=== PATIENT | female | born 1970 | race Hispanic/Latino ===

== ENCOUNTER 2024-10-15 20:26 | Emergency (ER) | payer BC ==
[~2024-10-15] VITALS: Ht 165.1 cm; Wt 99.8 kg
--- NOTE | 2024-10-15 20:49 | ERN ---
ED Note History of Present Illness Stated Complaint: FEVER, LUNGS HURT Chief Complaint: Sepsis Time Seen by MD: 20:29 Dictation: Patient is a 54-year-old diabetic female coming in today with fever chills persistent dry cough and states my lungs hurt onset yesterday. She denies any production with her cough states she does have malaise with sore throat. No change in urination. States her blood sugar was on checked today because she was feeling too bad. Allergies: Coded Allergies: No Known Allergies (Unverified Allergy, Unknown, 10/15/24) Past Medical History Past Medical History: Diabetes-Type II Surgical History: Cholecystectomy, Other Surgical History Other: RT ARM History: Not Applicable RN Note Reviewed/Agreed w/PFSH: Yes Review of System Dictation CONSTITUTIONAL: Negative except for HPI fever chills HEAD/FACE: Negative except for HPI EENT: Negative except for HPI sore throat RESPIRATORY: Negative except for HPI persistent dry cough GASTROINTESTINAL/ABDOMINAL: Negative except for HPI GENITOURINARY: Negative except for HPI MUSCULOSKELETAL: Negative except for HPI malaise INTEGUMENTARY: Negative except for HPI NEUROLOGICAL/PSYCH: Negative except for HPI HEMATOLOGIC/LYMPHATIC: Negative except for HPI All Systems Negative, Except as noted above. 13 point review of systems assessed and all negative except for above. Initial Vital Sign VS Vital Signs Date Time Temp Pulse Resp B/P (MAP) Pulse Ox O2 Delivery O2 Flow Rate FiO2 10/15/24 20:27 102.7 88 19 124/73 97 Room Air 10/15/24 21:24 0 21 Physical Exam Dictation Vital Signs reviewed General Appearance: Alert, oriented x 3, moderate acute distress, well developed, nourished. Head and Face: non-traumatic. Eyes: PERRL, pink conjunctivas, eyelid no trauma, anterior chamber with arcus senilis. Ears: Pinnas intact and no signs of trauma or erythema ear canals clear and no discharge TM no erythema Nose: Clear discharge, no bleeding. Oropharynx: Mouth normal, tongue pink, pharynx clear, moderate pharyngeal erythema, tonsils no exudates, no abscesses noted, mucous membrane moist Neck: Supple, non-tender, no thyromegaly, no masses, no JVD, no bruits Breast:Deferred Chest:No tenderness, no crepitus, no paradoxical movement, no retractions Lungs:Clear, well-ventilated, symmetric, no rales, no wheezing, no rhonchi, no stridor, good breath sounds bilaterally Heart: Regular rate, regular rhythm, no murmur, no gallops Vascular: no peripheral edema, Abdomen: Soft, positive bowel sounds, nondistended, no guarding, nontender, no rebound, no masses no hepatomegaly, no splenomegaly, no Madison's sign, no hernias. Rectal: Deferred Genital: Deferred Neurological: Normal speech, motor function intact, sensory function intact Musculoskeletal: Neck nontender, full range of motion, back nontender, full range of motion, Extremities: nontender, full range of motion Skin: Color pink, dry, no turgor, no rash, no lacerations, no abrasions, no contusions. Lymphatic: Deferred Results (Laboratory/Radiology) Laboratory/Radiology Laboratory Tests Test 10/15/24 21:04 10/15/24 21:05 White Blood Count 11.7 K/uL (4.8-10.8) H Red Blood Count 4.24 MIL/uL (4.00-5.50) Hemoglobin 12.8 g/dL (12.0-16.0) Hematocrit 37.7 % (36-48) Mean Corpuscular Volume 88.9 fL (79-99) Mean Corpuscular Hemoglobin 30.2 pg (27.0-33.0) Mean Corpuscular Hemoglobin Concent 34.0 g/dL (32.0-36.0) Red Cell Distribution Width 14.0 % (11.0-15.5) Platelet Count 398 K/uL (130-400) Mean Platelet Volume 10.9 fL (7.5-10.5) H Immature Granulocyte % (Auto) 0.3 % (0-1) Neutrophils (%) (Auto) 79.8 % (40.0-77.0) H Lymphocytes (%) (Auto) 9.8 % (21.0-51.0) L Monocytes (%) (Auto) 7.7 % (3.0-13.0) Eosinophils (%) (Auto) 2.1 % (0.0-8.0) Basophils (%) (Auto) 0.3 % (0.0-5.0) Neutrophils # (Auto) 9.3 K/uL (1.8-7.7) H Lymphocytes # (Auto) 1.1 K/uL (1.0-4.8) Monocytes # (Auto) 0.9 K/uL (0.1-1.0) Eosinophils # (Auto) 0.25 K/uL (0.00-0.70) Basophils # (Auto) 0.03 K/uL (0.00-0.20) Absolute Immature Granulocyte (auto 0.04 K/uL (0-1) Nucleated Red Blood Cells 0.0 % (0.0-0.19) White Cell Morphology Comment See comments Sodium Level 141 mmol/L (136-145) Potassium Level 3.5 mmol/L (3.5-5.1) Chloride Level 105 mmol/L (101-111) Carbon Dioxide Level 29 mmol/L (21-32) Blood Urea Nitrogen 15 mg/dL (7-18) Creatinine 0.9 mg/dL (0.5-1.0) Glomerular Filtration Rate Calc 75 mL/min (>90) Random Glucose 135 mg/dL (70-105) H Lactic Acid Level 2.6 mmol/L (0.8-2.5) H Total Calcium 9.5 mg/dL (8.5-10.1) Total Creatine Kinase 91 U/L (21-232) Troponin I High Sensitivity 7 ng/L (4-50) Influenza Type A Antigen Negative For Type A Influenza Type B Antigen Negative For Type B SARS-CoV-2 Antigen (Rapid) PRESUMPTIVE NEGATIVE Group A Streptococcus Rapid negative (NEGATIVE) Urine Color LIGHT-YELLOW (YELLOW) Urine Appearance CLEAR (CLEAR) Urine pH 5.5 (5.0-8.0) Urine Specific [place] 1.026 (1.001-1.031) Urine Protein NEGATIVE mg/dL (NEGATIVE) Urine Glucose (UA) NEGATIVE mg/dL (NEGATIVE) Urine Ketones NEGATIVE mg/dL (NEGATIVE) Urine Occult Blood NEGATIVE (NEGATIVE) Urine Nitrate NEGATIVE (NEGATIVE) Urine Bilirubin NEGATIVE mg/dL (NEGATIVE) Urine Urobilinogen 0.2 mg/dL (0.2-1.0) Urine Leukocyte Esterase 250 Jose/uL (NEGATIVE) H Urine RBC 2-5 /HPF (0-1) H Urine WBC 11-25 /HPF (0-1) H Urine Squamous Epithelial Cells FEW /HPF (0-2) Urine Bacteria RARE /HPF (None Seen) CHEST 1VW HISTORY: Shortness of breath, cough COMPARISON: None FINDINGS: A frontal projection of the chest was obtained. No acute pulmonary infiltrates is seen. The heart is normal in size. Prominent interstitial markings are seen. Degenerative changes are seen. No evidence of aortic calcification is seen. IMPRESSION: 1. No acute pulmonary infiltrate is seen. Labs Reviewed?: Yes EKG Comment: EKG SINUS RHYTHM/HEART RATE 84/AXIS NORMAL/NO ECTOPY ED Course ED Course Orders Procedure Category Date Status Time Iv Insertion CPOE 10/15/24 Transmitted 20:43 Pulse Ox(Continuous) RT 10/15/24 Transmitted 20:43 Vital Signs Per CPOE 10/15/24 Transmitted Routine 20:43 12 Lead Ekg Tracing- EKG 10/15/24 Logged Technical 20:43 Cbc With Differential LAB 10/15/24 Complete 20:43 Blood Cult HAL 10/15/24 In Process 20:43 Urinalysis Profile LAB 10/15/24 Logged 20:43 Culture Urine HAL 10/15/24 In Process 20:43 Creatine Kinase, Total LAB 10/15/24 Complete 20:43 Troponin I High LAB 10/15/24 Complete Sensitivity 20:43 Lactic Acid LAB 10/15/24 Complete 20:43 Basic Metabolic Panel LAB 10/15/24 Complete 20:43 Covid19 (Sars Antigen LAB 10/15/24 Complete Rapid) 20:42 Rapid (Group A Strep) LAB 10/15/24 Complete 20:42 Influenza Type A & B, LAB 10/15/24 Complete Rapid 20:42 Acetaminophen 500mg PHA 10/15/24 Complete Tab (Tylenol 500mg T 21:00 Urinalysis Profile LAB 10/15/24 Complete 20:42 Chest 1vw RAD 10/15/24 Resulted 20:42 Covid19 (Sars Antigen LAB 10/15/24 Logged Rapid) 20:45 Rapid (Group A Strep) LAB 10/15/24 Logged 20:45 0.9%Nacl 1000ml (Ns PHA 10/15/24 Complete 1000ml) 21:00 Ketorolac PHA 10/15/24 Complete Tromethamine 30mg/Ml 21:00 Budesonide 0.5 Mg/2 PHA 10/15/24 Complete Ml Inh (Pulmicort 0. 21:20 Ceftriaxone 1g Vial PHA 10/15/24 Complete (Rocephine 1g Inj) 21:30 Acetaminophen 325 Tab PHA 10/15/24 Complete (Tylenol 325mg Tab 21:30 Methylprednisolone PHA 10/15/24 Complete Succ 125mg (Solu-Medr 21:30 Current Medications Medications (Trade) Dose Ordered Sig/Rosemary Route PRN Reason Start Time Stop Time Status Last Admin Dose Admin Acetaminophen (TYLenol 325MG TAB) 650 mg ONCE ONCE PO 10/15/24 21:30 10/15/24 21:31 DC Acetaminophen (TYLenol 500MG TAB) 1,000 mg ONCE ONCE PO 10/15/24 21:00 10/15/24 21:01 DC 10/15/24 21:34 Budesonide (Pulmicort 0.5 Mg/2ml) 0.5 mg ONCE STAT IH 10/15/24 21:20 10/15/24 21:21 DC 10/15/24 22:17 Ceftriaxone Sodium (ROCEphine 1G INJ) 1 gm ONCE ONCE IVPB 10/15/24 21:30 10/15/24 21:31 DC 10/15/24 21:34 Ketorolac Tromethamine (toRADol) 30 mg ONCE ONCE IVP 10/15/24 21:00 10/15/24 21:01 DC 10/15/24 21:34 Methylprednisolone Sodium Succinate (Solu-medROL 125MG) 125 mg ONCE ONCE IVP 10/15/24 21:30 10/15/24 21:31 DC 10/15/24 21:35 Sodium Chloride 1,000 ml @ 0 mls/hr ONCE ONCE IV 10/15/24 21:00 10/15/24 21:01 DC 10/15/24 21:33 Vital Signs Date Time Temp Pulse Resp B/P (MAP) Pulse Ox O2 Delivery O2 Flow Rate FiO2 10/15/24 22:18 87 18 10/15/24 21:56 83 20 126/57 97 Room Air* 0 21 10/15/24 21:34 102.7 10/15/24 21:24 82 18 125/61 98 Room Air* 0 21 10/15/24 20:27 102.7 88 19 124/73 97 Room Air 2230, RESPIRATIONS ARE 16 A MINUTE SATURATIONS 97 98% ON ROOM AIR PATIENT STATES SHE FEELS MARKEDLY IMPROVED AFTER TREATMENT SHE IS AWARE SHE HAS A VIRAL URI WITH COUGH, UTI AND WE WILL BE DISCHARGED HOME WITH MEDICATIONS AND TO SEE HER DOCTOR. SHE SAYS SHE HAS A A NEBULIZER TREATMENT AT HOME. WE WILL NOT WAIT FOR 2ND LACTIC ACID READING BELIEVE THIS IS ALL VIRAL AND REACTIVE. HEART Score Response (Comments) Value History: Low suspicion (0) 0 Age: 45-65yrs (+1) 1 Risk Factors: 1-2 risk factors (+1) 1 Initial Troponin: Normal limit (0) 0 Total 2 Medical Decision Making MDM MDM: DIFFERENTIAL DIAGNOSIS: PNEUMONIA/BRONCHITIS/ACS/AMI/INFLUENZA, COVID, VIRAL URI RATIONALE: TESTS CONSIDERED AND ORDERED SECONDARY TO SHARED DECISION MAKING INCLUDE: EKG/LABS/RADIOLOGY PREVIOUS OUTSIDE RECORDS REVIEWED: OLD ER VISITS. RISK OF COMPLICATION AND/OR MORBIDITY OR MORTALITY OF PATIENT MANAGEMENT: NONE MEDICATIONS-PER MEDICATION RECONCILIATION NEED FOR HOSPITALIZATION: PATIENT DOES NOT MEET CRITERIA FOR HOSPITALIZATION. NO NEED FOR EMERGENCY MAJOR/MINOR SURGERY: NO THERE ARE NO SOCIAL CONCERNS WITH THIS PATIENT. PRESCRIPTION DRUG MANAGEMENT ALBUTEROL/TESSALON/AUGMENTIN PRESCRIPTIONS WILL INCLUDE SYMPTOMATIC CARE PATIENT'S PRIOR EXTERNAL MEDICAL RECORDS FROM OTHER ER VISITS WERE REVIEWED BY ME INDICATED. PRIOR TESTING AND RESULTS FROM PREVIOUS VISITS WERE REVIEWED. PRIOR TESTS WERE TAKEN INTO ACCOUNT WITH MEDICAL DECISION MAKING AND RESOURCE UTILIZATION, INDEPENDENT HISTORIAN/HISTORIANS WERE USED TO OBTAIN COMPLETE MEDICAL HISTORY. I INDEPENDENTLY INTERPRETED THE TEST THAT WERE PERFORMED, RESULTS WERE REVIEWED BY ME AND CONSIDERED FINDINGS ON RADIOLOGY IF ORDERED. MEDICAL MANAGEMENT AND EXAMINATION INTERPRETATION DISCUSSIONS WERE HAD BY ME WITH OTHER QUALIFIED HEALTHCARE PROFESSIONALS INDICATED FOR THE PATIENT'S CARE. DX & DISP Disposition: Discharge Departure Impression: Primary Impression: Viral URI with cough Additional Impressions: Acute cystitis with hematuria, Fever, Elevated lactic acid level Condition: Stable Scripts Benzonatate (Tessalon Perles) 100 Mg Cap 200 MG PO TID for cough, #60 CAP 0 Refills Prov: LAMONT JJ AFFIRMATIVE ACTION SPECIALIST 10/15/24 Amoxicillin/Potassium Clav (Amox Tr-K Clv 875-125 mg Tab) 875 Mg-125 Mg Tablet 1 EACH PO BID for 7 Days, #14 TAB 0 Refills Prov: LAMONT JJ AFFIRMATIVE ACTION SPECIALIST 10/15/24 Albuterol Sulfate (Albuterol Sulfate) 2.5 Mg/0.5 Ml Vial.neb 2.5 MG IH Q6H for wheezing/sob, #20 INH 0 Refills Prov: LAMONT JJ AFFIRMATIVE ACTION SPECIALIST 10/15/24 Additional Instructions: FOLLOW-UP WITH PRIMARY CARE PROVIDER IN 1 TO 2 DAYS. TAKE MEDICATIONS DIRECTED HERE IN THE EMERGENCY ROOM. OKAY TO CONTINUE HOME MEDICATIONS UNLESS OTHERWISE DISCUSSED DURING YOUR VISIT IN THE EMERGENCY ROOM TODAY. RETURN TO YOUR NEAREST EMERGENCY ROOM IF SYMPTOMS WORSEN OR IF THERE IS NO IMPROVEMENT. CALL 911 IF YOU NEED IMMEDIATE ASSISTANCE. TAKE TYLENOL OR MOTRIN OVER-THE-CO UNTER NEEDED AND IF NO CONTRAINDICATIONS ARE PRESENT. INCREASE ORAL HYDRATION. A WOUND CULTURE OR URINE CULTURE WAS ORDERED HERE IN THE EMERGENCY ROOM DEPARTMENT PLEASE FOLLOW-UP WITH PRIMARY CARE PROVIDER AND ADVISE THEM TO GET REPEAT PORTS FROM OUR FACILITY. IF YOU HAD ANY TODD WRAP/SPLINTS THAT WERE APPLIED HERE, PLEASE DO NOT REMOVE THEM UNTIL YOU SEE YOUR PRIMARY CARE OR SPECIALTY. TAKE ANTIBIOTIC DIRECTED UNTIL GONE. USE ALBUTEROL NEBULIZER EVERY 6 HOURS WHILE AWAKE FOR THE NEXT TWO DAYS. FOLLOW UP WITH YOUR PRIMARY CARE DOCTOR IN 1-2 DAYS Referrals: SELF,REFERRAL (PCP) Time of Disposition: 22:31 I have reviewed the case, and I agree with, Diagnosis and Plan LAMONT JJ NP Oct 15, 2024 20:49
[2024-10-15 21:17] LABS: BASOPHILS # (AUTO) 0.03 K/uL (0.00-0.20); BASOPHILS % (AUTO) 0.3 % (0.0-5.0); EOSINOPHILS # (AUTO) 0.25 K/uL (0.00-0.70); EOSINOPHILS % (AUTO) 2.1 % (0.0-8.0); HEMATOCRIT 37.7 % (36-48); IMMATURE GRANULOCYTE ABSOLUTE 0.04 K/uL (0-1); LYMPHOCYTES # (AUTO) 1.1 K/uL (1.0-4.8); LYMPHOCYTES % (AUTO) 9.8 % (21.0-51.0); MEAN CORPUSCULAR HEMOGLOBIN 30.2 pg (27.0-33.0); MEAN CORPUSCULAR VOLUME 88.9 fL (79-99); MONOCYTES # (AUTO) 0.9 K/uL (0.1-1.0); MONOCYTES % (AUTO) 7.7 % (3.0-13.0); NEUTROPHILS # (AUTO) 9.3 K/uL (1.8-7.7); NEUTROPHILS % (AUTO) 79.8 % (40.0-77.0); PLATELET COUNT (AUTO) 398 K/uL (130-400); RED BLOOD CELL COUNT(AUTO) 4.24 MIL/uL (4.00-5.50); WHITE BLOOD COUNT (AUTO) 11.7 K/uL (4.8-10.8)
[2024-10-15 21:18] LABS: APPEARANCE,URINE CLEAR (CLEAR); BILIRUBIN,URINE NEGATIVE (NEGATIVE); COLOR,URINE LIGHT-YELLOW (YELLOW); GLUCOSE, URINE (UA) NEGATIVE (NEGATIVE); KETONES,URINE NEGATIVE (NEGATIVE); LEUKOCYTE ESTERASE ,URINE 250 Leu/uL (NEGATIVE); NITRATE,URINE NEGATIVE (NEGATIVE); OCCULT BLOOD,URINE NEGATIVE (NEGATIVE); PH,URINE 5.5 (5.0-8.0); PROTEIN,URINE NEGATIVE (NEGATIVE); UROBILINOGEN,URINE 0.2 mg/dL (0.2-1.0)
[2024-10-15 21:23] LABS: ADD UA MICROSCOPIC YES
--- NOTE | 2024-10-15 21:23 | HMCIMG ---
CHEST 1VW HISTORY: Shortness of breath, cough COMPARISON: None FINDINGS: A frontal projection of the chest was obtained. No acute pulmonary infiltrates is seen. The heart is normal in size. Prominent interstitial markings are seen. Degenerative changes are seen. No evidence of aortic calcification is seen. IMPRESSION: 1. No acute pulmonary infiltrate is seen.
[2024-10-15 21:25] LABS: CREATININE 0.9 mg/dL (0.5-1.0); POTASSIUM 3.5 mmol/L (3.5-5.1)
[2024-10-15 21:27] LABS: BACTERIA,URINE RARE /HPF (None Seen); MUCUS,URINE RARE LPF (None Seen); SQUAMOUS EPITHELIAL CELL,UR FEW /HPF (0-2)
[2024-10-15 21:29] LABS: RAPID GROUP A STREP negative (NEGATIVE)
[2024-10-15] MEDS: 0.9%NACL 1000ML 1,000 ML IV ONE (21:33)
[2024-10-15 21:34] VITALS: TEMP 102.7
[2024-10-15] MEDS: ketOROlac 30MG VIAL (30MG/ML) IVP ONE (21:34)
[2024-10-15] MEDS: acetaMINOPHEN 325 MG TAB PO ONE (21:34)
[2024-10-15] MEDS: cefTRIAXone 1G VIAL IVPB ONE (21:34)
[2024-10-15] MEDS: acetaMINOPHEN 500 MG TABLET PO ONE (21:34)
[2024-10-15] MEDS: Solu-medROL 125MG VIAL IVP ONE (21:35)
[2024-10-15 21:38] LABS: COVID19 (SARS ANTIGEN RAPID) PRESUMPTIVE NEGATIVE (NEGATIVE); INFLUENZA TYPE A Negative For Type A (NEGATIVE); INFLUENZA TYPE B Negative For Type B (NEGATIVE)
[2024-10-15] MEDS: BUDESONIDE 0.5 MG/2 ML INH IH STA (22:17)
[2024-10-15 22:18] VITALS: PULSE 87; RESP 18
[2024-10-15] MEDS ORDERED: AUD IH (22:33)
[2024-10-15] MEDS ORDERED: BENZ-39 PO (22:33)
[2024-10-15] MEDS ORDERED: AMOX1TAB16 PO (22:33)
[2024-10-15 22:53] VITALS: BP 114/58; PULSE 82; RESP 18; TEMP 98.5; O2SAT 95
--- NOTE | 2024-10-16 06:36 | EKG ---
[facility] Test Date: 2024-10-15 Test Time: 21:15:07 Pat Name: KELLY ACOSTA Department: EDH Room: Gender: F [employer]: [id number] : 1970 Requested By: RITCHIE MARTINEZ Order Number: [id number] Reading MD: Andrea Virk Measurements Intervals [place] Rate: 84 P: 22 ND: 160 QRS: 36 QRSD: 83 T: 57 QT: 335 QTc: 397 Interpretive Statements Sinus rhythm Consider anterior infarct No previous ECG available for comparison Electronically Signed On 10-16-2024 21:43:04 DOG SHOW JUDGE by Andrea Virk Please click the below link to view image of tracing.
== END 2024-10-15 23:07 | disposition home or self-care (01) ==
LOC: EDH 20:26
DX: J06.9 Acute upper respiratory infection, unspecified (principal); R05.9 Cough, unspecified; B97.89 Other viral agents as the cause of diseases classified elsewhere; N30.01 Acute cystitis with hematuria; R50.9 Fever, unspecified; E87.20 Acidosis, unspecified; E11.9 Type 2 diabetes mellitus without complications; Z79.51 Long term (current) use of inhaled steroids; Z90.49 Acquired absence of other specified parts of digestive tract; Z20.822 Contact with and (suspected) exposure to COVID-19
CPT/HCPCS: 99284; 96365; 96375; 71045; 87426; 82550; 84484; 80048; 85025; 87040 ×2; 87086; 87880; 87804 ×2; 83605; 81001; 36415; 93005; 94640; J1885; J2919; J7030; J0696